=== PATIENT | male | born 1955 | race Caucasian/White ===

== ENCOUNTER → 2018-09-27 | Outpatient (CLI) | payer OTHER ==
[~2018-09-27] MED LIST: CEFU250 PO; CIPR-214 PO; ESOM40CA42 PO; EZE10 PO; EZET10TA41 PO; GABA-1 PO; GABA-533 PO; GABA-549 PO; HYDR-653 PO; IBUP-1618 PO; IRO150 PO; LANI SUBQ; LOR5 PO; LOSA-31 PO; LOSA-44 PO; METF-450 PO; METR-1 PO; METXR500 PO; PANT40TA65 PO; POTA10CA40 PO; POTASSIUM PO; VERA100C4 PO; VERA200C8 PO; ZOLP-350 PO; [UNRECOGNIZED DRUG - OTHER]
== END ==
LOC: LAB 10:28
PROVIDERS: ATTEND Surgery
DX: L57.0 Actinic keratosis (principal)
CPT/HCPCS: 88305